=== PATIENT | male | born 1945 | race Caucasian/White ===

== ENCOUNTER → 2017-10-15 | Outpatient (CLI) | payer MEDICARE, OTHER | LOC: CARD 11:09 | PROVIDERS: ATTEND Internal Medicine Interventional Cardiology | DX: R07.9 Chest pain, unspecified (principal); E78.5 Hyperlipidemia, unspecified; I10 Essential (primary) hypertension; I48.1 Persistent atrial fibrillation; R06.02 Shortness of breath | CPT/HCPCS: 93225; 93226 ==

== ENCOUNTER → 2017-10-19 | Outpatient (CLI) | payer MEDICARE, OTHER | LOC: CARD 13:28 | PROVIDERS: ATTEND Internal Medicine Interventional Cardiology | DX: R07.9 Chest pain, unspecified (principal); E78.5 Hyperlipidemia, unspecified; I10 Essential (primary) hypertension; I48.1 Persistent atrial fibrillation; R06.02 Shortness of breath | CPT/HCPCS: 93306 ==

== ENCOUNTER 2017-11-18 12:00 | Outpatient (RCR) | payer MEDICARE, OTHER ==
[2017-10-25] MEDS: CATHETER FLUSH 10 ML SYR IV PRN ×2 (07:45→07:46)
[~2017-11-18 12:00] MED LIST: REGADENOSON 0.4 MG/5 ML SYR (LEXISCAN) IV ONE
[2017-11-22] MEDS ORDERED: METO50TA15 PO (08:16)
[2017-11-22] MEDS ORDERED: FINA5TAB6 PO (08:16)
[2017-11-22] MEDS ORDERED: DABI150C5 PO (08:16)
[2017-11-22] MEDS ORDERED: RIVA20TA PO (08:20)
[2017-12-20] MEDS ORDERED: ATOR40TA70 PO (07:39)
[2017-12-20] MEDS ORDERED: FLEC50TA PO (10:41)
== END 2018-01-23 | disposition home or self-care (01) ==
LOC: CARD 12:00
PROVIDERS: ATTEND Internal Medicine Interventional Cardiology
DX: R07.9 Chest pain, unspecified (principal); E78.5 Hyperlipidemia, unspecified; I10 Essential (primary) hypertension; I48.1 Persistent atrial fibrillation; R06.02 Shortness of breath
CPT/HCPCS: 93270

== ENCOUNTER → 2017-11-22 | Day surgery (SDC) | payer MEDICARE, OTHER ==
[~2017-11-22] VITALS: Ht 172.7 cm; Wt 79.4 kg
[2017-11-22] VITALS (15 sets, daily range): BP systolic 114–143; BP diastolic 71–102
[~2017-11-22] MED LIST changes: +DABI150C5 PO; +FINA5TAB6 PO; +FLU QUADRIvalent (5+ YOA) 2018-2019 (AFLURIA) 0.5 ML IM ONE; +METO50TA15 PO; +MIDAZOLAM 5 MG/5 ML (VERSED) VIAL ONE; +NS IV 1000 ML 1,000 ML IV SCH; +NS IV 1000 ML 1,000 ML ONE; -REGADENOSON 0.4 MG/5 ML SYR (LEXISCAN) IV ONE; +RIVA20TA PO; +proPOfol 200 MG/20 ML (DIPRIVAN) VIAL IV ONE
--- NOTE | 2017-11-22 10:07 | Cardioversion ---
Cardioversion PROCEDURE PHYSICIAN: Nitesh Valdovinos MD DATE OF PROCEDURE: 11/22/17 DIRECT EXTERNAL ELECTRICAL CARDIOVERSION: Indications: Atrial Fibrillation with rapid ventricular rate Preoperative diagnoses: Atrial Fibrillation with rapid ventricular rate Postoperative diagnosis: Unsuccessful cardioversion. History: This is a 72-year-old gentleman with atrial fibrillation with rapid ventricular rate. Anesthesia: By Anesthesia services Complications: None Specimen: None Contrast: 0 Flouroscopy: none Procedure Details: The patient was brought the laborer cook house after informed consent was taken, all the risks and complications were explained including the risk of stroke. Patient has been on uninterrupted Xarelto for the last 6 weeks. Electrical cardioversion was carried out with anesthesia support with propofol. 200 joules of synchronized shock x3 was delivered through external patches, however, patient will convert to sinus rhythm only for a few seconds and then reverted back to atrial fibrillation. The patient tolerated the procedure well. Conclusions: 1.unsuccessful cardioversion. 2.Continue oral anticoagulation and rate controlling agent. start flecainide 50 mg twice a day. 3.Follow up in office in 2-3 weeks. Nitesh Valdovinos MD, RS, CCDS Cardiac Electrophysiology Susana VALDOVINOS MD Nov 22, 2017 10:07 am
--- NOTE | 2017-11-22 14:37 | Anesthesia-Procedure Note ---
Procedures/Interventions Procedure Start/Stop/Diagnosis Date of Procedure: Nov 22, 2017 Start Time: 09:45 Stop Time: 10:08 RACHEL/Cardioversion Anesthesia Type: Mac ASA Class: 3 Medications Propofol 100 mg IV Monitors and Equipment: BP Cuff - Left, Continuous EKG, End Tidal CO2, IV, Pulse Oximeter MARIA ESTHER HENNING CRNA Nov 22, 2017 14:37
--- NOTE | 2017-11-22 14:42 | Anesthesia-General Post-Op ---
MAC Patient Condition Mental Status/LOC: Same as Preop Cardiovascular: Satisfactory Nausea/Vomiting: Absent Respiratory: Satisfactory Pain: Controlled Complications: Absent Post Op Complications Complications None Follow Up Care/Instructions Patient Instructions None needed. Anesthesiology Discharge Order Discharge Order Patient is doing well, no complaints, stable vital signs, no apparent adverse anesthesia problems. No complications reported per nursing. MARIA ESTHER HENNING CRNA Nov 22, 2017 14:42
== END | disposition home or self-care (01) ==
LOC: CATH 07:26
PROVIDERS: ATTEND Internal Medicine Interventional Cardiology
DX: I48.0 Paroxysmal atrial fibrillation (principal); I10 Essential (primary) hypertension; G47.33 Obstructive sleep apnea (adult) (pediatric); E78.5 Hyperlipidemia, unspecified; Z79.01 Long term (current) use of anticoagulants; Z79.82 Long term (current) use of aspirin; Z79.899 Other long term (current) drug therapy; Z87.891 Personal history of nicotine dependence
CPT/HCPCS: 92960; 93005

== ENCOUNTER → 2017-12-20 | Day surgery (SDC) | payer MEDICARE, OTHER ==
[~2017-12-20] VITALS: Ht 172.7 cm; Wt 79.4 kg
[2017-12-20] VITALS (9 sets, daily range): BP systolic 111–163; BP diastolic 68–102
[~2017-12-20] MED LIST changes: +ATOR40TA70 PO; +FLEC50TA PO; +MIDAZOLAM 2 MG/2 ML (VERSED) VIAL ONE; -MIDAZOLAM 5 MG/5 ML (VERSED) VIAL ONE
--- NOTE | 2017-12-20 15:11 | Cardioversion ---
Cardioversion PROCEDURE PHYSICIAN: Nitesh Valdovinos MD DATE OF PROCEDURE: 12/20/17 DIRECT EXTERNAL ELECTRICAL CARDIOVERSION: Indications: Atrial Fibrillation with rapid ventricular rate Preoperative diagnoses: Atrial Fibrillation with rapid ventricular rate Postoperative diagnosis: Sinus rhythm, Successful Electrical Cardioversion History: Persistent Atrial Fibrillation on Flecainide. Anesthesia: By Anesthesia services Complications: None Specimen: None Contrast: 0 Flouroscopy: none Procedure Details: The patient was brought the lab analyst after informed consent was taken, all the risks and complications were explained including the risk of stroke. Electrical cardioversion was carried out with anesthesia support with propofol. 200 joules of synchronized shock was delivered through external patches which promptly restored sinus rhythm. The patient tolerated the procedure well. Conclusions: 1.Successful Cardioversion. 2.Continue oral anticoagulation and rate controlling agent. Continue Flecainide. 3.Follow up in office in 7 days. Nitesh Valdovinos MD, FHRS, CCDS Cardiac Electrophysiology Susana VALDOVINOS MD Dec 20, 2017 3:11 pm
--- NOTE | 2017-12-20 18:20 | Anesthesia-Procedure Note ---
Procedures/Interventions Procedure Start/Stop/Diagnosis Date of Procedure: Dec 20, 2017 Start Time: 09:38 Referring Physician: Dr Valdovinos Preprocedural Diagnosis: A-fib Brief History Anesthesia Note Pt S/E and brief history obtained from Dr Valdovinos. NPO status verified. Rx given and cardioversion times 2 resulted in a return to sinus rhythm. Pt maintained spontaneous ventilation throughout and tolerated the procedure well. Stop Time: 09:43 Postprocedural Diagnosis: sinus rhythm RACHEL/Cardioversion Anesthesia Type: MAC ASA Class: 3 Medications Midazolam 2 mg IV and Propofol 60 mg IV. Monitors and Equipment: BP Cuff - Left, Continuous EKG, End Tidal CO2, IV, Pulse Oximeter ARMEN BRAY DO Dec 20, 2017 18:20
--- NOTE | 2017-12-20 18:20 | Anesthesia-General Post-Op ---
MAC Patient Condition Mental Status/LOC: Same as Preop Cardiovascular: Satisfactory Nausea/Vomiting: Absent Respiratory: Satisfactory Pain: Controlled Complications: Absent Post Op Complications Complications None Follow Up Care/Instructions Patient Instructions None needed. Anesthesiology Discharge Order Discharge Order Patient was seen this morning after the procedure and he was doing well, no complaints, stable vital signs, no apparent adverse anesthesia problems. ARMEN BRAY DO Dec 20, 2017 18:20
== END | disposition home or self-care (01) ==
LOC: CATH 06:57
PROVIDERS: ATTEND Internal Medicine Interventional Cardiology
DX: I48.1 Persistent atrial fibrillation (principal); I10 Essential (primary) hypertension; R06.83 Snoring; G47.33 Obstructive sleep apnea (adult) (pediatric); E78.5 Hyperlipidemia, unspecified; Z87.891 Personal history of nicotine dependence; Z79.899 Other long term (current) drug therapy; Z79.01 Long term (current) use of anticoagulants; Z79.82 Long term (current) use of aspirin
CPT/HCPCS: 92960; 93005

== ENCOUNTER → 2018-01-07 | Day surgery (SDC) | payer MEDICARE, OTHER ==
[~2018-01-07] VITALS: Ht 172.7 cm; Wt 79.4 kg
[~2018-01-07] MED LIST changes: -MIDAZOLAM 2 MG/2 ML (VERSED) VIAL ONE
[2018-01-07 07:26] VITALS: BP 148/88
[2018-01-07 08:43] VITALS: BP 151/95
[2018-01-07 08:48] VITALS: BP 113/76
--- NOTE | 2018-01-07 08:50 | Cardioversion ---
Cardioversion PROCEDURE PHYSICIAN: Nitesh Valdovinos MD DATE OF PROCEDURE: 01/07/18 DIRECT EXTERNAL ELECTRICAL CARDIOVERSION: Indications: Atrial flutter Preoperative diagnoses: Atrial flutter Postoperative diagnosis: Sinus rhythm, Successful Electrical Cardioversion History: This is a 72 year old gentleman with history of persistent AF, who previously underwent cardioversion to sinus rhythm on flecainide and oral anticoagulation. He presented with atrial flutter. EP study with ablation was offered but patient refused. Cardioversion was planned. patient is on interrupted oral anticoagulation therapy for atleast two months. Anesthesia: By Anesthesia services Complications: None Specimen: None Contrast: 0 Flouroscopy: none Procedure Details: The patient was brought the laborer starch factory after informed consent was taken, all the risks and complications were explained including the risk of stroke. Electrical cardioversion was carried out with anesthesia support with propofol. 200 joules of synchronized shock was delivered through external patches which promptly restored sinus rhythm. The patient tolerated the procedure well. Conclusions: 1.Successful Cardioversion. 2.Continue oral anticoagulation and rate controlling agent. 3.Follow up in office in 2-3 weeks. Nitesh Valdovinos MD, RS, CCDS Cardiac Electrophysiology Susana VALDOVINOS MD Jan 07, 2018 8:50 am
[2018-01-07 08:59] VITALS: BP 96/67
[2018-01-07 10:21] VITALS: BP 121/72
--- NOTE | 2018-01-07 15:04 | Anesthesia-General Post-Op ---
MAC Patient Condition Mental Status/LOC: Same as Preop Cardiovascular: Satisfactory Nausea/Vomiting: Absent Respiratory: Satisfactory Pain: Controlled Complications: Absent Post Op Complications Complications None Follow Up Care/Instructions Patient Instructions None needed. Anesthesiology Discharge Order Discharge Order Patient was seen after the procedure this morning and he was doing well, no complaints, stable vital signs, no apparent adverse anesthesia problems. ARMEN BRAY DO Jan 07, 2018 15:04
--- NOTE | 2018-01-07 15:04 | Anesthesia-Procedure Note ---
Procedures/Interventions Procedure Start/Stop/Diagnosis Date of Procedure: Jan 07, 2018 Start Time: 07:40 Referring Physician: Aruna Preprocedural Diagnosis: Atrial Flutter Brief History Called to oil field laborer for scheduled cardioversion with anesthesia. Pt supine with monitors applied, 02 per NC, verified NPO status and history obtained from chart. ASA 3. Propofol boluses given for a total of 80mg. Cardioversion completed without incident. VSS, spontaneously breathing. Left pt in care of RN with report given. Stop Time: 07:47 Postprocedural Diagnosis: Atrial Flutter/SR OSITO NEWMAN CRNA Jan 07, 2018 15:04
== END | disposition home or self-care (01) ==
LOC: CATH 06:55
PROVIDERS: ATTEND Internal Medicine Interventional Cardiology
DX: I48.3 Typical atrial flutter (principal); I48.1 Persistent atrial fibrillation; I10 Essential (primary) hypertension; E78.5 Hyperlipidemia, unspecified; G47.33 Obstructive sleep apnea (adult) (pediatric); Z79.82 Long term (current) use of aspirin; Z87.891 Personal history of nicotine dependence
CPT/HCPCS: 92960; 93005

== ENCOUNTER 2018-01-22 05:37 | Outpatient (CLI) | payer MEDICARE, OTHER ==
[~2018-01-22] VITALS: Ht 172.7 cm; Wt 81.6 kg
[~2018-01-22 05:37] MED LIST changes: -FLU QUADRIvalent (5+ YOA) 2018-2019 (AFLURIA) 0.5 ML IM ONE; -NS IV 1000 ML 1,000 ML IV SCH; -NS IV 1000 ML 1,000 ML ONE; -proPOfol 200 MG/20 ML (DIPRIVAN) VIAL IV ONE
== END 2018-01-23 10:09 ==
LOC: PREOP 05:37
PROVIDERS: ATTEND Internal Medicine Interventional Cardiology
DX: Z01.818 Encounter for other preprocedural examination (principal)

== ENCOUNTER 2018-01-28 08:48 | Day surgery (SDC) | payer MEDICARE, OTHER ==
[~2018-01-28] VITALS: Ht 172.7 cm; Wt 83.5 kg
[2018-01-28] VITALS (15 sets, daily range): BP systolic 93–161; BP diastolic 63–95
[2018-01-28] MEDS ORDERED: LIDOCAINE 1% INJ 20 ML 20 ML VIAL ONE (09:10)
[2018-01-28] MEDS ORDERED: NS IV 1000 ML 1,000 ML ONE ×2 (09:10→13:01)
[2018-01-28] MEDS ORDERED: HEParin (CATH LAB) 2,000 ML IV ONE (09:10)
[2018-01-28] MEDS ORDERED: NS IV 1000 ML 1,000 ML IV SCH (09:18)
[2018-01-28] MEDS ORDERED: ISOPROTERENOL 0.2 MG/100 ML D5W IV ONE (09:30)
[2018-01-28 09:49] LABS: HEMOGLOBIN 15.2 G/DL (13.3-17.7); MEAN PLATELET VOLUME 11.4 FL (7.4-10.4); RED BLOOD COUNT 5.25 10^6/uL (4.35-5.85); RED CELL DISTRIBUTION WIDTH 14.2 % (10.0-14.5)
[2018-01-28 10:09] LABS: INR 1.5 (0.8-1.4); PROTHROMBIN TIME PATIENT 18.5 SEC (12.2-14.7)
[2018-01-28 10:14] LABS: ALANINE AMINOTRANSFERASE 38 U/L (0-55); ALBUMIN 4.4 GM/DL (3.2-4.5); ALKALINE PHOSPHATASE 78 U/L (40-136); BILIRUBIN,TOTAL 0.9 MG/DL (0.1-1.0); BUN/CREATININE RATIO 9; CALCIUM 9.9 MG/DL (8.5-10.1); CARBON DIOXIDE 24 MMOL/L (21-32); CHLORIDE 105 MMOL/L (98-107); CREATININE SERUM 1.07 MG/DL (0.60-1.30); GFR ESTIMATED > 60; GLUCOSE 97 MG/DL (70-105); POTASSIUM 4.2 MMOL/L (3.6-5.0); SODIUM 140 MMOL/L (135-145); TOTAL PROTEIN 7.6 GM/DL (6.4-8.2)
[2018-01-28] MEDS ORDERED: FLU QUADRIvalent (5+ YOA) 2018-2019 (AFLURIA) 0.5 ML IM ONE (10:30)
[2018-01-28] MEDS ORDERED: LIDOCAINE BOLUS 100 MG/5 ML (IMS) SYR ONE (10:48)
[2018-01-28] MEDS ORDERED: SEVOFLURANE (ULTANE) 15 ML INHAL SOLN ONE ×2 (10:48→13:02)
[2018-01-28] MEDS ORDERED: proPOfol 200 MG/20 ML (DIPRIVAN) VIAL IV ONE (10:48)
[2018-01-28] MEDS ORDERED: fentaNYL INJECTION 100 MCG/2 ML AMP ONE (10:48)
[2018-01-28] MEDS ORDERED: ONDANSETRON 4 MG/2 ML (SDV) Z0FRAN ONE (10:48)
[2018-01-28] MEDS ORDERED: MIDAZOLAM 2 MG/2 ML (VERSED) VIAL ONE (10:48)
[2018-01-28] MEDS ORDERED: PHENYLEPHRINE 100 MCG/ML 10 ML (ANESTHESIA) SYR ONE (11:07)
[2018-01-28] MEDS ORDERED: NS (IVPB) 100 ML ONE (12:11)
[2018-01-28] MEDS ORDERED: PHENYLEPHRINE INJ 10 MG/ML (NEO-SYNEPHRINE 1%) ONE (12:11)
[2018-01-28] MEDS ORDERED: PATIENT MAY USE OWN MEDS, ALL PO SCH (14:00)
--- NOTE | 2018-01-28 14:09 | Cardiology Post Procedure Note ---
Post-Procedure Note Physician (s)/Stitcher Hand (s) Physician Susana CASTILLO MD Pre-Procedure Diagnosis Pre-Procedure Diagnosis: Typical atrial flutter, persistent atrial fibrillation Post-Procedure Note Procedure Start Date: Jan 28, 2018 Procedure Start Time: 11:00 Name of Procedure: EP study with induction, drug infusion, CS pacing, comprehensive 3-D mapping, typical atrial flutter ablation. Findings/Procedure Note Successful typical atrial flutter ablation. Direct electrical cardioversion for persistent atrial fibrillation. Estimated blood loss (mL): 10 Contrast Amount: 0 Post-Procedure Diagnosis Post-operative diagnosis: Typical atrial flutter ablation. Direct electrical cardioversion for persistent atrial fibrillation. Susana CASTILLO MD Jan 28, 2018 2:09 pm
[2018-01-28] MEDS ORDERED: morphine INJ 10 MG/ML 1ML (SYR OR VIAL) IVP ONE (14:30)
[2018-01-28] MEDS ORDERED: ONDANSETRON 4 MG/2 ML (SDV) Z0FRAN IVP PRN (14:30)
[2018-01-28] MEDS ORDERED: MEPERIDINE (DEMEROL) INJ 50 MG/ML IVP ONE (14:30)
--- NOTE | 2018-01-28 14:51 | Anesthesia-General Post-Op ---
General Patient Condition Mental Status/LOC: Same as Preop Cardiovascular: Satisfactory Nausea/Vomiting: Absent Respiratory: Satisfactory Pain: Controlled Complications: Absent Post Op Complications Complications None Follow Up Care/Instructions Patient Instructions None needed. Anesthesia/Patient Condition Patient Condition Patient is doing well, no complaints, stable vital signs, no apparent adverse anesthesia problems. No complications reported per nursing. LEONARDO RIVERA CRNA Jan 28, 2018 14:51
[2018-01-28] MEDS ORDERED: ATORVASTATIN 40 MG (LIPITOR) TABLET PO SCH (21:00)
[2018-01-28] MEDS: NS IV 1000 ML 1,000 ML IV SCH (21:49)
[2018-01-28] MEDS: meTOprolol TARTRATE 50 MG (LOPRESSOR) TAB PO SCH (21:50)
[2018-01-29] VITALS (8 sets, daily range): BP systolic 104–124; BP diastolic 65–76
[2018-01-29] MEDS: NS IV 1000 ML 1,000 ML IV SCH ×2 (00:26→08:15)
[2018-01-29 03:32] LABS: HEMOGLOBIN 11.8 G/DL (13.3-17.7); MEAN PLATELET VOLUME 11.2 FL (7.4-10.4); RED BLOOD COUNT 4.1 10^6/uL (4.35-5.85); RED CELL DISTRIBUTION WIDTH 14.4 % (10.0-14.5); WHITE BLOOD COUNT 6.6 10^3/uL (4.3-11.0)
[2018-01-29 03:55] LABS: BUN/CREATININE RATIO 12; CALCIUM 8.5 MG/DL (8.5-10.1); CARBON DIOXIDE 20 MMOL/L (21-32); CHLORIDE 113 MMOL/L (98-107); CREATININE SERUM 0.92 MG/DL (0.60-1.30); GFR ESTIMATED > 60; GLUCOSE 97 MG/DL (70-105); POTASSIUM 3.8 MMOL/L (3.6-5.0); SODIUM 143 MMOL/L (135-145)
--- NOTE | 2018-01-29 07:40 | Anesthesia-General Post-Op ---
General Patient Condition Mental Status/LOC: Same as Preop Cardiovascular: Satisfactory Nausea/Vomiting: Absent Respiratory: Satisfactory Pain: Controlled Complications: Absent Post Op Complications Complications None Follow Up Care/Instructions Patient Instructions None needed. Anesthesia/Patient Condition Patient Condition Patient is doing well, no complaints, stable vital signs, no apparent adverse anesthesia problems. No complications reported per nursing. DVAID CHAMBERS CRNA Jan 29, 2018 07:40
[2018-01-29] MEDS ORDERED: RIVAROXABAN 20 MG TABLET (XARELTO) PO SCH (08:00)
[2018-01-29] MEDS: meTOprolol TARTRATE 50 MG (LOPRESSOR) TAB PO SCH (08:15)
[2018-01-29] MEDS ORDERED: FINASTERIDE (PROSCAR) 5 MG TAB PO SCH (09:00)
--- NOTE | 2018-01-29 09:30 | Cardiology Discharge Summary ---
Diagnosis/Chief Complaint Date of Admission 01/28/2018 Date of Discharge 01/29/2018 Admission Diagnosis Typical atrial flutter, persistent atrial fibrillation Final/Discharge Diagnosis Typical atrial flutter ablation. Chief Complaint/HPI Chief Complaint/HPI This is a 72-year-old gentleman with history of typical atrial flutter and persistent atrial fibrillation. Occasionally the patient develops typical atrial flutter and then degenerates to atrial fibrillation. I discussed at length with the patient and offered right-sided typical atrial flutter ablation. Informed consent was signed. Discharge Summary Procedures Direct electrical cardioversion. Successful Typical atrial flutter ablation. Discharge Physical Examination Normal cardiovascular and respiratory examination. Hospital Course Unremarkable. Pending Labs Laboratory Tests 01/29/18 03:05: White Blood Count 6.6, Red Blood Count 4.10, Hemoglobin 11.8, Hematocrit 36, Mean Corpuscular Volume 87, Mean Corpuscular Hemoglobin 29, Mean Corpuscular Hemoglobin Concent 33, Red Cell Distribution Width 14.4, Platelet Count 192, Mean Platelet Volume 11.2, Sodium Level 143, Potassium Level 3.8, Chloride Level 113, Carbon Dioxide Level 20, Anion Gap 10, Blood Urea Nitrogen 11, Creatinine 0.92, Estimat Glomerular Filtration Rate > 60, BUN/Creatinine Ratio 12, Glucose Level 97, Calcium Level 8.5 Discussion & Recommendations Discussion All discharge instructions were discussed at length including medical therapy and any restrictions. Discharge took over 30 minutes to complete. Patient will continue flecainide and antiarrhythmic therapy. I will see the patient in 4 weeks. Follow up appt.: Dr. Valdovinos in 4 weeks. Dicharge Diet: Cardiac Diet Activity as Tolerated: Yes Home Medications Reviewed patient Home Medication Reconciliation performed by pharmacy medication reconciliations senior controls technician and/or nursing. Patients Allergies have been reviewed. Discharge Home Medications: Reviewed and agree with Discharge Medication list on patient's Discharge Instruction sheet Condition at discharge Stable. Instructions to patient/family Discussed at length with the patient. Susana VALDOVINOS MD Jan 29, 2018 9:30 am
--- NOTE | 2018-01-29 09:31 | Discharge Inst-Post CATH ---
Discharge Inst-CATH Post Cardiac Cath D/C Inst Follow Up/Plan Dr Valdovinos in four weeks CARDIAC CATH DISCHARGE INSTRUCTIONS *Hold Metformin for 48 hours post heart cath. ACTIVITY * Go Home directly and rest. * Limit activity of the leg (or wrist if it was used) for 7 days including aerobics, swimming, jogging, bicycling, etc. * Restrict stair-climbing for 7 days if possible, if not, climb up with your non -cath leg, then bring together on the same step. * Avoid lifting, pushing, pulling or excessive movement of the affected extremity for 7 days. * Customary sexual activity may be resumed after 2 days-use caution not to use a position that strains or causes pain to the affected extremity. * No driving for 24 hours. * NO SMOKING. * Avoid straining for bowel movements for 7 days. * Gentle walking on level ground is allowed. * Returning to work will depend on the type of procedure and the results. Your doctor will discuss this with you. CALL YOUR DOCTOR FOR ANY OF THE FOLLOWING: *If bleeding from the puncture site occurs- Apply gentle pressure to site with clean cloth and call your doctor or EMS. * If a knot or lump forms under the skin, increases in size, or causes pain. * If bruising appears to be worsening or moving further down your leg instead of disappearing. * Temperature above 101 F. CARE OF YOUR GROIN INCISION; * Bruising or purple discoloration of the skin near the puncture site is common. * You may shower only, no bathtub bathing for 5 days. Be careful to avoid slipping as your leg may feel stiff. * If a closure device was used on your femoral artery, please see the attached guide regarding care of the device and your leg. * Leave the dressing on, until removed by office staff. CARE OF YOUR WRIST INCISION; * Bruising or purple discoloration of the skin near the puncture site is common. * You may shower. * DO NOT submerge wrist. * Leave dressing on, until removed by office staff.. Susana VALDOVINOS MD Jan 29, 2018 9:30 am
== END 2018-01-29 10:40 | disposition home or self-care (01) ==
LOC: CATH 08:48 → ICU 15:26 → CATH 01-29 10:40
PROVIDERS: ATTEND Internal Medicine Interventional Cardiology
DX: I48.3 Typical atrial flutter (principal); I48.0 Paroxysmal atrial fibrillation; I10 Essential (primary) hypertension; G47.33 Obstructive sleep apnea (adult) (pediatric); Z87.891 Personal history of nicotine dependence; Z79.01 Long term (current) use of anticoagulants; Z79.899 Other long term (current) drug therapy
CPT/HCPCS: 36415; 80048; 80053; 85027; 85610; 85730; 87081; 92960; 93005; 93613; 93621; 93623; 93653

== ENCOUNTER 2018-02-13 19:45 | Outpatient (CLI) | payer MEDICARE, OTHER | END 2018-02-14 05:48 | disposition home or self-care (01) | LOC: SLEEP 19:45 | PROVIDERS: ATTEND Otolaryngology Otolaryngology/Facial Plastic Surgery | DX: G47.33 Obstructive sleep apnea (adult) (pediatric) (principal); G47.31 Primary central sleep apnea | CPT/HCPCS: 95811 ==

== ENCOUNTER 2018-04-04 07:12 | Day surgery (SDC) | payer MEDICARE, OTHER ==
[2018-04-04] VITALS (10 sets, daily range): BP systolic 104–166; BP diastolic 66–116
[~2018-04-04] VITALS: Ht 172.7 cm; Wt 83.9 kg
[2018-04-04] MEDS ORDERED: NS IV 1000 ML 1,000 ML ONE (07:21)
[2018-04-04] MEDS ORDERED: NS IV 1000 ML 1,000 ML IV SCH (07:30)
[2018-04-04] MEDS ORDERED: proPOfol 200 MG/20 ML (DIPRIVAN) VIAL IV ONE (08:08)
[2018-04-04] MEDS ORDERED: MIDAZOLAM 5 MG/5 ML (VERSED) VIAL ONE (08:08)
[2018-04-04] MEDS ORDERED: fentaNYL INJECTION 100 MCG/2 ML AMP ONE (08:08)
[2018-04-04] MEDS ORDERED: MIDAZOLAM 2 MG/2 ML (VERSED) VIAL ONE (08:19)
[2018-04-04] MEDS ORDERED: FLU QUADRIvalent (5+ YOA) 2018-2019 (AFLURIA) 0.5 ML IM ONE (08:45)
--- NOTE | 2018-04-04 09:07 | Anesthesia-Procedure Note ---
Procedures/Interventions Procedure Start/Stop/Diagnosis Date of Procedure: Apr 04, 2018 Start Time: 08:25 Referring Physician: Aruna Brief History To biology laboratory assistant for cardioversion. Patient's history reviewed, including allergies. O2/NC. Propofol 50mg IV given total for procedure. Report to Lucio Jean Baptiste RN. Spontaneous respirations continue with SaO2 97%. Stop Time: 08:32 RACHEL/Cardioversion Anesthesia Type: MAC ASA Class: 2 Medications Propofol 50mg Monitors and Equipment: BP Cuff - Right, Continuous EKG, End Tidal CO2, Pulse Oximeter, V Lead EKG LEONARDO RIVERA CRNA Apr 04, 2018 09:06
--- NOTE | 2018-04-04 12:05 | Cardioversion ---
Cardioversion PROCEDURE PHYSICIAN: Nitesh Valdovinos MD DATE OF PROCEDURE: 04/04/18 DIRECT EXTERNAL ELECTRICAL CARDIOVERSION: Indications: Atrial Fibrillation Preoperative diagnoses: Atrial Fibrillation Postoperative diagnosis: Sinus rhythm, Successful Electrical Cardioversion History: Persistent AF Anesthesia: By Anesthesia services Complications: None Specimen: None Contrast: 0 Flouroscopy: none Procedure Details: The patient was brought the dental laboratory technician after informed consent was taken, all the risks and complications were explained including the risk of stroke. Electrical cardioversion was carried out with anesthesia support with propofol. 200 joules of synchronized shock was delivered through external patches which promptly restored sinus rhythm. The patient tolerated the procedure well. Conclusions: 1.Successful Cardioversion. 2.Continue oral anticoagulation and rate controlling agent. 3.Follow up in office in 14-21 days. Nitesh Valdovinos MD, RS, CCDS Cardiac Electrophysiology Susana VALDOVINOS MD Apr 04, 2018 12:05
== END 2018-04-04 09:57 | disposition home or self-care (01) ==
LOC: CATH 07:12
PROVIDERS: ATTEND Internal Medicine Interventional Cardiology
DX: I48.1 Persistent atrial fibrillation (principal); I10 Essential (primary) hypertension; G47.33 Obstructive sleep apnea (adult) (pediatric); R06.83 Snoring; E78.5 Hyperlipidemia, unspecified; Z87.891 Personal history of nicotine dependence; Z88.5 Allergy status to narcotic agent; Z79.899 Other long term (current) drug therapy
CPT/HCPCS: 92960; 93005

== ENCOUNTER 2018-10-07 06:39 | Day surgery (SDC) | payer MEDICARE, OTHER ==
[2018-10-07] VITALS (16 sets, daily range): BP systolic 119–174; BP diastolic 52–91
[~2018-10-07] VITALS: Ht 172.7 cm; Wt 83.9 kg
[~2018-10-07 06:39] MED LIST changes: -RIVA20TA PO; +RIVA20TA2 PO
[2018-10-07] MEDS ORDERED: ROCURONIUM 10 MG/ML 5 ML SYRINGE IV ONE ×2 (07:04→09:04)
[2018-10-07] MEDS ORDERED: SEVOFLURANE (ULTANE) 15 ML INHAL SOLN ONE ×3 (07:04→16:50)
[2018-10-07] MEDS ORDERED: proPOfol 200 MG/20 ML (DIPRIVAN) VIAL IV ONE (07:04)
[2018-10-07] MEDS ORDERED: MIDAZOLAM 2 MG/2 ML (VERSED) VIAL ONE (07:04)
[2018-10-07] MEDS ORDERED: LIDOCAINE PF 1% 2 ML AMP ONE (07:04)
[2018-10-07] MEDS ORDERED: fentaNYL INJECTION 100 MCG/2 ML AMP ONE ×2 (07:04→11:53)
[2018-10-07] MEDS ORDERED: ONDANSETRON 4 MG/2 ML (SDV) Z0FRAN ONE ×2 (07:05→15:54)
[2018-10-07] MEDS ORDERED: DEXAMETHASONE 10 MG/ML (DECADRON) 1 ML VIAL ONE (07:05)
[2018-10-07] MEDS ORDERED: NS IV 1000 ML 1,000 ML IV SCH (07:06)
[2018-10-07] MEDS ORDERED: HEParin (CATH LAB) 4,000 ML IV ONE (07:08)
[2018-10-07] MEDS ORDERED: NS IV 1000 ML 1,000 ML ONE ×3 (07:08→14:36)
[2018-10-07] MEDS ORDERED: SUCCINYLCHOLINE INJ 100 MG/5 ML SYR ONE (07:08)
[2018-10-07] MEDS ORDERED: LIDOCAINE 1% INJ 20 ML 20 ML VIAL ONE (07:08)
[2018-10-07] MEDS ORDERED: ISOPROTERENOL 0.2 MG/D5W 50 ML IV ONE (07:15)
[2018-10-07] MEDS ORDERED: ESZO1TAB12 PO (07:31)
[2018-10-07] MEDS ORDERED: METO-387 PO (07:31)
[2018-10-07 07:59] LABS: HEMOGLOBIN 13.6 G/DL (13.3-17.7); MEAN PLATELET VOLUME 10.8 FL (7.4-10.4); RED CELL DISTRIBUTION WIDTH 14.4 % (10.0-14.5); WHITE BLOOD COUNT 6.9 10^3/uL (4.3-11.0)
[2018-10-07 08:20] LABS: ALBUMIN 4.1 GM/DL (3.2-4.5); BILIRUBIN,TOTAL 0.9 MG/DL (0.1-1.0); CALCIUM 9.7 MG/DL (8.5-10.1); CREATININE SERUM 1.22 MG/DL (0.60-1.30); TOTAL PROTEIN 7.5 GM/DL (6.4-8.2)
[2018-10-07 08:28] LABS: INR 1.6 (0.8-1.4); PROTHROMBIN TIME PATIENT 19.6 SEC (12.2-14.7)
[2018-10-07] MEDS ORDERED: HEParin 1000 UNIT/ML (10ML VIAL) FOR BOLUS ONE ×2 (08:52→11:17)
[2018-10-07] MEDS ORDERED: HEParin DRIP 25000 UNIT/500ML 500 ML IV ONE (08:52)
[2018-10-07] MEDS ORDERED: HEParin (CATH LAB) 1,000 ML IV ONE (13:55)
[2018-10-07] MEDS ORDERED: PHENYLEPHRINE 100 MCG/ML 10 ML (ANESTHESIA) SYR ONE (14:35)
[2018-10-07] MEDS ORDERED: morphine INJ 10 MG/ML 1ML (SYR OR VIAL) ONE (15:09)
--- NOTE | 2018-10-07 15:50 | Cardiac Procedure Note-CS/ASA ---
Pre-Procedure Note Pre-Op Procedure Note H&P Reviewed The H&P was reviewed, patient examined and no changes noted. Date H&P Reviewed: Oct 07, 2018 Time H&P Reviewed: 08:00 Conscious Sedation Pre-Proced Time 08:00 ASA Score 3 For ASA 3 and 4: Consider anesthesia and medical clearance. Also, for patients with a history of failed moderate sedation consider anesthesia. Airway Lungs Heart ASA score ASA 1: a normal healthy patient ASA 2: a patient with a mild systemic disease (mid diabetes, controlled hypertension, obesity ASA 3: a patient with a severe systemic disease that limits activity (angina, COPD, prior Myocardial infarction) ASA 4: a patient with an incapacitating disease that is a constant threat to life (CHF, renal failure) ASA 5: a moribund patient not expected to survive 24 hrs. (ruptured aneurysm) ASA 6: a declared brain- patient whose organs are being harvested. For emergent operations, add the letter E after the classification Mallampati Classification Grade 1 Sedation Plan Analgesia, Amnesia, Plan communicated to team members, Discussed options with patient/fam, Discussed risks with patient/fam The patient is an appropriate candidate to undergo the planned procedure, sedation, and anesthesia. The patient immediately re-assessed prior to indication. Susana CASTILLO MD Oct 07, 2018 15:50
--- NOTE | 2018-10-07 15:50 | Electrophysiology Procedure ---
EP Procedure DATE OF SERVICE:10/07/18 CARDIAC SITE INSPECTOR: Nitesh Valdovinos MD, [facility], [facility]. INDICATION: persistent atrial fibrillation refractory to antiarrhythmic therapy. PREOPERATIVE DIAGNOSIS:persistent atrial fibrillation refractory to antiarrhythmic therapy. POSTOPERATIVE DIAGNOSES: successful pulmonary vein isolation. HISTORY: this is a 73-year-old gentleman with persistent atrial fibrillation with refractory to antiarrhythmic therapy. The patient is planned for comprehensive EP study and ablation. PROCEDURE PERFORMED: 1. Comprehensive EP study with induction. 2. Fluoroscopy. 3. left atrial pacing and recording. 4. Left ventricular pacing and recording. 5. Drug infusion. 6. atrial fibrillation ablation with pulmonary vein isolation. 7. Comprehensive 3D mapping with the carto system. 8. intracardiac echocardiogram COMPLICATION: None. ESTIMATED BLOOD LOSS: 10 mL. CONTRAST USED: None. FLUOROSCOPY TIME: 7 minutes 58 seconds. FLUOROSCOPY DOSE: 84 mgy. SPECIMENS: None. ANESTHESIA: Done by our anesthesia colleagues. ANTICOAGULATION: Xarelto, heparin PROCEDURE IN DETAIL: After informed consent was taken, the patient was brought to the EP lab. Anesthesia was provided by our anesthesia colleagues. The patient was draped and prepped in the usual sterile fashion. The patient presented to the EP lab in sinus rhythm. Access was gained in the right femoral vein with a 6-Tristanian and an 8-Tristanian sheath. Left access in left femoral vein was gained with 5-Tristanian and 6-Tristanian sheath respectively. High right atrial catheter was an ablation catheter, right ventricular catheter was placed, his catheter and the CS catheter were also placed. A comprehensive EP study was done including a CS pacing. Typical atrial flutter was not induced with rapid atrial pacing with and without Isuprel infusion. A 3D electroanatomic mapping was donewith the carto system. Ablation was performed in the cavotricuspid isthmus.CS pacing and pacing from the ablation catheter at different positions on the lateral side of the ablation line were used to verify bidirectional block. We then waited for 30 minutes and rechecked and confirmed bidirectional block.Isuprel was given post-procedure, however, we could not induce atrial flutter.The patienttolerated the procedure well and did not have any complication. The patientleft the lab in sinus rhythm. Total ablation time was 9 minutes and 46 seconds. MEASUREMENTS/EP STUDY: AH Interval HV Interval AV Wenckebach retrograde Wenckebach AV node ERP Ventricular ERP PLAN: The patient will be observed overnight and will be discharged home tomorrow with precise followup instructions. Nitesh Valdovinos MD, RS, CCDS Cardiac Electrophysiology Susana VALDOVINOS MD Oct 07, 2018 15:50
[2018-10-07] MEDS ORDERED: PROTAMINE 50 MG/5 ML VIAL ONE (15:52)
[2018-10-07] MEDS ORDERED: GLYCOPYRROLATE 0.2 MG/ML (ROBINUL) 2 ML VIAL ONE (15:54)
[2018-10-07] MEDS ORDERED: NEOSTIGMINE 3 MG/3 ML VIAL ONE (15:54)
[2018-10-07] MEDS ORDERED: PATIENT MAY USE OWN MEDS, ALL PO SCH (16:00)
[2018-10-07] MEDS ORDERED: RIVAROXABAN 20 MG TABLET (XARELTO) PO SCH (17:00)
[2018-10-07] MEDS ORDERED: morphine INJ 10 MG/ML 1ML (SYR OR VIAL) IVP ONE (17:00)
[2018-10-07] MEDS ORDERED: ONDANSETRON 4 MG/2 ML (SDV) Z0FRAN IVP PRN (17:00)
[2018-10-07] MEDS: NS IV 1000 ML 1,000 ML IV SCH (17:05)
[2018-10-08] VITALS (13 sets, daily range): BP systolic 108–167; BP diastolic 40–78
[2018-10-08] MEDS: NS IV 1000 ML 1,000 ML IV SCH ×2 (04:17→12:59)
[2018-10-08 04:32] LABS: HEMOGLOBIN 11.1 G/DL (13.3-17.7); MEAN PLATELET VOLUME 10.8 FL (7.4-10.4); RED CELL DISTRIBUTION WIDTH 14.3 % (10.0-14.5); WHITE BLOOD COUNT 10.8 10^3/uL (4.3-11.0)
[2018-10-08 04:49] LABS: BUN/CREATININE RATIO 17; CALCIUM 8.4 MG/DL (8.5-10.1); CARBON DIOXIDE 21 MMOL/L (21-32); CHLORIDE 110 MMOL/L (98-107); CREATININE SERUM 0.93 MG/DL (0.60-1.30); GFR ESTIMATED > 60; GLUCOSE 117 MG/DL (70-105); POTASSIUM 3.9 MMOL/L (3.6-5.0); SODIUM 140 MMOL/L (135-145)
--- NOTE | 2018-10-08 10:47 | Anesthesia-General Post-Op ---
General Patient Condition Mental Status/LOC: Same as Preop Cardiovascular: Satisfactory Nausea/Vomiting: Absent Respiratory: Satisfactory Pain: Controlled Complications: Absent Post Op Complications Complications None Follow Up Care/Instructions Patient Instructions None needed. Anesthesia/Patient Condition Patient Condition Patient is doing well, no complaints, stable vital signs, no apparent adverse anesthesia problems. Patient states he is planning on D/C to home today after he sees Dr Valdovinos. ARMEN BRAY DO Oct 08, 2018 10:47
--- NOTE | 2018-10-08 13:11 | Cardiology Discharge Summary ---
Diagnosis/Chief Complaint Date of Admission 10/07/2018 Date of Discharge 10/08/2018 Admission Diagnosis Persistent atrial fibrillation Final/Discharge Diagnosis Status post atrial fibrillation ablation Chief Complaint/HPI Chief Complaint/HPI This is a 73-year-old gentleman with persistent atrial fibrillation refractory to antiarrhythmic therapy. Discharge Summary Procedures Successful atrial fibrillation ablation with pulmonary vein isolation with entrance and exit block. Discharge Physical Examination Normal cardiovascular examination. Hospital Course Was the Problem List Reviewed?: Yes Unremarkable Discussion & Recommendations Discussion Discharge took over 30 minutes to complete. Discharge instructions were discussed at length with the patient and family. The procedure were discussed at length again. Patient will continue oral anticoagulation therapy as well as antiarrhythmic medications. Follow up appt.: Follow-up on previously scheduled appointment. Dicharge Diet: Cardiac Diet Activity as Tolerated: Yes Home Medications Reviewed patient Home Medication Reconciliation performed by pharmacy medication reconciliations atm technician and/or nursing. Patients Allergies have been reviewed. Discharge Home Medications: Reviewed and agree with Discharge Medication list on patient's Discharge Instruction sheet Condition at discharge Stable. Instructions to patient/family Discussed at length with the patient and family. Susana CASTILLO MD Oct 08, 2018 13:11
--- NOTE | 2018-10-08 13:12 | Discharge Inst-Post CATH ---
Discharge Inst-CATH/EP Problems Reviewed?: Yes Post Cardiac Cath/EP D/C Inst Follow Up/Plan Dr Valdovinos on previously scheduled appointment. <b>CARDIAC CATH/EP PROCEDURE DISCHARGE INSTRUCTIONS</b> ACTIVITY * Go Home directly and rest. * Limit activity of the leg (or wrist if it was used) for 7 days including aerobics, swimming, jogging, bicycling, etc. * Restrict stair-climbing for 7 days if possible, if not, climb up with your non-cath leg, then bring together on the same step. * Avoid lifting, pushing, pulling or excessive movement of the affected extremity for 7 days. * Customary sexual activity may be resumed after 2 days-use caution not to use a position that strains or causes pain to the affected extremity. * No driving for 24 hours. * NO SMOKING. * Avoid straining for bowel movements for 7 days. * Gentle walking on level ground is allowed. * Returning to work will depend on the type of procedure and the results. Your doctor will discuss this with you. CALL YOUR DOCTOR FOR ANY OF THE FOLLOWING: *If bleeding from the puncture site occurs- Apply gentle pressure to site with clean cloth and call your doctor or EMS. * If a knot or lump forms under the skin, increases in size, or causes pain. * If bruising appears to be worsening or moving further down your leg instead of disappearing. * Temperature above 101 F. CARE OF YOUR GROIN INCISION; * Bruising or purple discoloration of the skin near the puncture site is common. * You may shower only, no bathtub bathing for 5 days. Be careful to avoid slipping as your leg may feel stiff. * If a closure device was used on your femoral artery, please see the attached guide regarding care of the device and your leg. * Leave dressing on FOR 24 hours. CARE OF YOUR WRIST INCISION; * Bruising or purple discoloration of the skin near the puncture site is common. * You may shower. * DO NOT submerge wrist. * Leave dressing on FOR 24 hours. Susana VALDOVINOS MD Oct 08, 2018 13:12
== END 2018-10-08 13:30 | disposition home or self-care (01) ==
LOC: CATH 06:39 → ICU 17:45 → CATH 10-08 13:30
PROVIDERS: ATTEND Internal Medicine Interventional Cardiology
DX: I48.1 Persistent atrial fibrillation (principal); I48.3 Typical atrial flutter; I10 Essential (primary) hypertension; G47.33 Obstructive sleep apnea (adult) (pediatric); E78.5 Hyperlipidemia, unspecified; Z87.891 Personal history of nicotine dependence; Z79.82 Long term (current) use of aspirin; Z79.899 Other long term (current) drug therapy
CPT/HCPCS: 36415; 80048; 80053; 85027; 85610; 85730; 87081; 93005; 93613; 93620; 93621; 93622; 93623; 93656; 93662

== ENCOUNTER 2018-11-21 07:55 | Day surgery (SDC) | payer MEDICARE, OTHER ==
[~2018-11-21] VITALS: Ht 172.2 cm; Wt 82.6 kg
[~2018-11-21 07:55] MED LIST changes: +ESZO1TAB12 PO; +METO-387 PO
[2018-11-21 08:13] VITALS: BP 170/82
[2018-11-21] MEDS ORDERED: LIDOCAINE 1% INJ 20 ML 20 ML VIAL ONE (08:39)
--- NOTE | 2018-11-21 15:34 | Implantation of Loop Monitor ---
Implant of Loop Monitior PROCEDURE PHYSICIAN: Nitesh Valdovinos MD IMPLANTATION OF LOOP MONITOR REPORT DATE OF PROCEDURE: 11/21/18 PERFORMING PHYSICIAN: Dr. Iglesia Valdovinos. INDICATION: Long-term surveillance of atrial fibrillation PREOP DIAGNOSIS: Long-term surveillance of atrial fibrillation POSTOP DIAGNOSIS: Atrial fibrillation, s/p implantation of loop recorder. PROCEDURE DETAILS: The patient is a 73 male with history of paroxysmal atrial fibrillation requ iring long-term surveillance. Therefore implantable loop recorder was discussed and agreed with the patient. Informed consent was taken. All risks and complications were discussed at length. The patient was draped and prepped in the usual sterile fashion. Local anesthesia was lidocaine, which was given in the substernal area close to the 4th intercostal space. Loop monitor was imp lanted according to the protocol. Steri-Strips were placed at the end of the procedure. There were no complications and the patient tolerated the procedure well. The device was interrogated with a voltage of 0.33 mV. ANESTHESIA: Local anesthesia with lidocaine. COMPLICATIONS: None CONTRAST/FLUOROSCOPY: None CONCLUSION: 1. Successful implantation of loop monitor for long-term surveillance of atrial fibrillation. 2. No complication and the patient tolerated the procedure well. Nitesh Valdovinos MD, RS, CCDS Cardiac Electrophysiology Susana VALDOVINOS MD Nov 21, 2018 15:34
== END 2018-11-21 09:58 | disposition home or self-care (01) ==
LOC: CATH 07:55
PROVIDERS: ATTEND Internal Medicine Interventional Cardiology
DX: I48.0 Paroxysmal atrial fibrillation (principal); I11.9 Hypertensive heart disease without heart failure; I48.3 Typical atrial flutter; I44.39 Other atrioventricular block; E78.5 Hyperlipidemia, unspecified; G47.33 Obstructive sleep apnea (adult) (pediatric); Z88.5 Allergy status to narcotic agent; Z88.8 Allergy status to other drugs, medicaments and biological substances; Z79.899 Other long term (current) drug therapy; Z87.891 Personal history of nicotine dependence; Z95.818 Presence of other cardiac implants and grafts; Z82.49 Family history of ischemic heart disease and other diseases of the circulatory system
CPT/HCPCS: 33285

== ENCOUNTER → 2019-11-20 | Outpatient (CLI) | payer MEDICARE, OTHER ==
[~2019-11-20] MED LIST changes: -METO-387 PO; +MTP25TSR PO
== END ==
LOC: CARD 15:00
PROVIDERS: ATTEND Internal Medicine Interventional Cardiology
DX: I48.19 Other persistent atrial fibrillation (principal); I48.3 Typical atrial flutter; G47.33 Obstructive sleep apnea (adult) (pediatric); I10 Essential (primary) hypertension; E78.5 Hyperlipidemia, unspecified
CPT/HCPCS: 93306

== ENCOUNTER → 2021-05-31 | Outpatient (CLI) | payer MEDICARE, OTHER | LOC: CARD 14:30 | PROVIDERS: ATTEND Hospitalist | DX: I35.8 Other nonrheumatic aortic valve disorders (principal); G47.33 Obstructive sleep apnea (adult) (pediatric) | CPT/HCPCS: 93306 ==

== ENCOUNTER → 2021-10-24 | Outpatient (CLI) | payer MEDICARE, OTHER ==
[2021-10-24 15:19] LABS: ALANINE AMINOTRANSFERASE 18 U/L (0-55); ALBUMIN 4.3 GM/DL (3.2-4.5); ALKALINE PHOSPHATASE 94 U/L (40-136); BILIRUBIN,TOTAL 0.7 MG/DL (0.1-1.0); BUN/CREATININE RATIO 11; CALCIUM 9.5 MG/DL (8.5-10.1); CARBON DIOXIDE 24 MMOL/L (21-32); CHLORIDE 108 MMOL/L (98-107); CREATINE KINASE 130 U/L (30-200); CREATININE SERUM 1.14 MG/DL (0.60-1.30); GFR ESTIMATED 67; GLUCOSE 103 MG/DL (70-105); POTASSIUM 3.7 MMOL/L (3.6-5.0); SODIUM 142 MMOL/L (135-145); TOTAL PROTEIN 7.3 GM/DL (6.4-8.2)
== END ==
LOC: LAB 14:35
PROVIDERS: ATTEND Nurse Practitioner Family
DX: I48.91 Unspecified atrial fibrillation (principal)
CPT/HCPCS: 36415; 80053; 82550; 82553; 84484

== ENCOUNTER → 2022-12-15 | Outpatient (CLI) | payer MEDICARE, OTHER ==
[~2022-12-15] MED LIST changes: +CATHETER FLUSH 10 ML SYR IVP PRN; +REGADENOSON 0.4 MG/5 ML SYR IV ONE
[2022-12-15 09:52] VITALS: BP 166/103
--- NOTE | 2022-12-19 16:29 | STRESS TEST ---
DATE OF SERVICE: 12/15/2022 RESTING AND POST REGADENOSON TECHNETIUM-99M TETROFOSMIN SPECT CT IMAGING ORDERING PHYSICIAN: Dr. Ovalle. PRIMARY PHYSICIAN: Dr. Silverman. CLINICAL DIAGNOSIS: Paroxysmal atrial fibrillation. Baseline images were carried out after injection of 10.67 mCi technetium-99m tetrofosmin. This was followed by 0.4 mg regadenoson and 29.9 mCi technetium-99m tetrofosmin for stress imaging. The electrocardiogram showed atrial fibrillation at baseline and this did not change significantly with regadenoson infusion. Ventricular response to atrial fibrillation remained between 110 and 120 beats per minute throughout the study. The patient tolerated the procedure well. There was nonspecific ST abnormality at baseline, which did not change significantly with regadenoson infusion. Review of images at rest and following stress does not indicate any distinct perfusion defects consistent with significant myocardial ischemia or infarction. Some degree of diaphragmatic attenuation is seen both at rest and following regadenoson infusion. Gated images show normal global left ventricular systolic function with normal regional wall motion, including the diaphragmatic wall of the left ventricle. Left ventricular ejection fraction is calculated to be 66%. Left ventricular end-diastolic volume is 63 mL. TID is absent (1.05). CONCLUSIONS: 1. No evidence of significant myocardial ischemia or infarction on this study. 2. Normal regional wall motion. 3. Normal global left ventricular systolic function with a calculated ejection fraction of 66%. Job ID: [id number] DocumentID: [id number] Dictated Date: 12/19/2022 13:43:13 Ski Instructor Date: 12/19/2022 16:28:00 Dictated By: BERONICA OVALLE MD; ROLANDO; FACP; FACC;
== END ==
LOC: CARD 08:15
PROVIDERS: ATTEND Internal Medicine Cardiovascular Disease
DX: I48.0 Paroxysmal atrial fibrillation (principal)
CPT/HCPCS: 78452; 93017; A9502